=== PATIENT | male | born 1965 | race Caucasian/White ===

== ENCOUNTER 2021-03-25 09:13 | Observation (INO) ==
[2021-03-25] MEDS: Ipratropium/Albuterol Neb 3 ML IH PRN ×2 (15:23→22:21)
[2021-03-25 15:42] LABS: Prothrombin Time 11.3 Seconds (9.4-12.1)
[2021-03-25 15:47] LABS: Hematocrit 42.5 % (37.5-50.1); Hemoglobin 13.8 g/dL (12.9-16.9); Mean Corpuscular HGB Conc 32.5 g/dL (31.6-35.5); Mean Corpuscular Hemoglobin 29.9 pg (28.0-33.3); Mean Corpuscular Volume 92.2 fL (83.0-100.0); Mean Platelet Volume 9.5 fL (9.4-12.4); Platelet Count 289 K/mcL (140-400); Red Blood Count 4.61 M/mcL (4.19-5.50); Red Cell Distribution Width 13.2 % (11.5-14.5)
[2021-03-25 16:17] LABS: Alanine Aminotransferase 10 Units/L (7-52); Albumin 4.2 g/dL (3.5-5.7); Albumin/Globulin Ratio 1.8 (1.1-2.2); Alkaline Phosphatase 28 Units/L (34-104); Aspartate Amino Transferase 12 Units/L (13-39); BUN/Creatinine Ratio 13 (6-26); Bilirubin,Total 0.5 mg/dL (0.3-1.0); Blood Urea Nitrogen 12 mg/dL (6-20); Calcium 9.1 mg/dL (8.6-10.3); Carbon Dioxide 27 mEq/L (23-29); Chloride 102 mEq/L (98-107); Globulin 2.3 g/dL (2.4-3.5); Glucose 99 mg/dL (70-105); Magnesium 2.2 mg/dL (1.6-2.6); Osmolality,Calculated 294 (280-300); Potassium 3.7 mEq/L (3.5-5.1); Sodium 142 mEq/L (136-145); Total Protein 6.5 g/dL (6.4-8.9); eGFR For African Americans > 60 (> 60); eGFR For Non-African Americans > 60 (> 60)
[2021-03-25 19:21] LABS: VBG HCO3 33 mEq/L (21-27); VBG PCO2 64 mmHg (41-51); VBG PH 7.32 pH Units (7.32-7.42); VBG PO2 25 mmHg (25-50)
[2021-03-25] MEDS: Gabapentin 300 MG CAPSULE PO SCH (21:47)
[2021-03-25] MEDS: Baclofen 10 MG TABLET PO SCH (21:47)
[2021-03-26] MEDS: Ipratropium/Albuterol Neb 3 ML IH PRN (06:10)
[2021-03-26] MEDS: Baclofen 10 MG TABLET PO SCH ×2 (07:59→22:26)
[2021-03-26] MEDS: Gabapentin 300 MG CAPSULE PO SCH ×2 (07:59→22:26)
[2021-03-26] MEDS ORDERED: Ipratropium/Albuterol Neb 3 ML IH PRN (08:13)
[2021-03-26] MEDS ORDERED: predniSONE 10 MG TABLET PO SCH (09:00)
[2021-03-26] MEDS ORDERED: Budesonide/Formoterol 160/4.5 1 PUFF INH IH SCH (10:00)
[2021-03-26] MEDS ORDERED: Ipratropium/Albuterol Neb 3 ML IH SCH ×2 (10:00→22:00)
[2021-03-26] MEDS ORDERED: Bacitracin 50,000 UNIT, Polymyxin B Sulfate 500,000 UNIT, Sodium Chloride IRRigation 1,... IR ONE (10:15)
[2021-03-26] MEDS ORDERED: *HR* OxyCODONE Immed Rel 5 MG TABLET PO PRN ×2 (10:28→14:12)
[2021-03-26] MEDS ORDERED: Ondansetron 4 MG/2 ML VIAL IVP PRN ×2 (10:28→14:12)
[2021-03-26] MEDS ORDERED: *HR* HYDROmorphone PF 0.5 MG/0.5 ML SYRINGE IVP PRN (10:28)
[2021-03-26] MEDS ORDERED: Ringers Solution, Lactated 1,000 ML IVC SCH ×2 (10:30→14:12)
[2021-03-26] MEDS ORDERED: Acetaminophen IV 1,000 MG/100 ML BAG IVPB ONE (10:37)
[2021-03-26] MEDS ORDERED: *HR* FentaNYL (PF) 100 MCG/2 ML VIAL ONE (10:41)
[2021-03-26] MEDS ORDERED: *HR* Propofol 200 MG/20 ML VIAL IVP ONE (10:42)
[2021-03-26] MEDS ORDERED: *HR* Midazolam HCl 2 MG/2 ML VIAL ONE (10:42)
[2021-03-26] MEDS ORDERED: Lidocaine -MPF 4% 5 ML AMPUL ONE (10:48)
[2021-03-26] MEDS ORDERED: *HR* Succinylcholine 200 MG/10 ML VIAL IVP ONE (10:49)
[2021-03-26] MEDS ORDERED: Lidocaine -MPF 2% 2 ML VIAL ONE (10:49)
[2021-03-26] MEDS ORDERED: EPHEDrine 50 MG/ML VIAL ONE (11:01)
[2021-03-26] MEDS ORDERED: Ondansetron 4 MG/2 ML VIAL ONE (11:04)
[2021-03-26] MEDS ORDERED: *HR* HYDROMORPHONE 2 MG/ML VIAL ONE (11:34)
[2021-03-26] MEDS ORDERED: Ketorolac 30 MG/ML VIAL ONE (12:55)
[2021-03-26] MEDS ORDERED: *HR* HYDROcodone/Acet 5/325 mg TABLET PO PRN (14:12)
[2021-03-26] MEDS ORDERED: Acetaminophen 325 MG TABLET PO PRN (14:12)
[2021-03-26] MEDS ORDERED: Naloxone 0.4 MG/ML INJ IVP PRN (14:12)
[2021-03-26] MEDS ORDERED: Ipratropium/Albuterol Neb 3 ML ONE (15:30)
[2021-03-26] MEDS: Ipratropium/Albuterol Neb 3 ML IH SCH ×2 (15:31→22:58)
[2021-03-26] MEDS: CeFAZolin 2 GM/120 ML BAG IVPB SCH ×2 (17:09→23:55)
[2021-03-26] MEDS ORDERED: (Glycopyrrolate/Formoterol Fum [Bevespi Aerosphere In PO SCH (22:00)
[2021-03-26] MEDS ORDERED: NON-FORMULARY MEDICATION 1 EACH EACH (Acetaminophen [Tylenol Arthritis] 650 MG Tablet.Er) PO SCH (22:00)
[2021-03-27 01:18] LABS: Hematocrit 38.1 % (37.5-50.1); Mean Corpuscular HGB Conc 34.1 g/dL (31.6-35.5); Mean Corpuscular Hemoglobin 30.8 pg (28.0-33.3); Mean Corpuscular Volume 90.3 fL (83.0-100.0); Mean Platelet Volume 9.2 fL (9.4-12.4); Platelet Count 254 K/mcL (140-400); Red Blood Count 4.22 M/mcL (4.19-5.50); Red Cell Distribution Width 13.1 % (11.5-14.5); White Blood Count 10.4 K/mcL (4.3-11.1)
[2021-03-27 01:36] LABS: BUN/Creatinine Ratio 10 (6-26); Blood Urea Nitrogen 9 mg/dL (6-20); Carbon Dioxide 27 mEq/L (23-29); Chloride 104 mEq/L (98-107); Glucose 167 mg/dL (70-105); Osmolality,Calculated 292 (280-300); Phosphorous 3.9 mg/dL (2.7-4.5); Potassium 4.2 mEq/L (3.5-5.1); Sodium 140 mEq/L (136-145); eGFR For African Americans > 60 (> 60); eGFR For Non-African Americans > 60 (> 60)
[2021-03-27] MEDS: Ipratropium/Albuterol Neb 3 ML IH SCH ×3 (03:51→15:50)
[2021-03-27] MEDS: Gabapentin 300 MG CAPSULE PO SCH (09:49)
[2021-03-27] MEDS: Baclofen 10 MG TABLET PO SCH (09:50)
[2021-03-27 14:59] VITALS: BP 103/63
== END 2021-03-27 17:40 | disposition home or self-care (01) ==
LOC: 3NENU
PROVIDERS: ADMIT Orthopaedic Surgery Orthopaedic Surgery of the Spine; ATTEND Orthopaedic Surgery Orthopaedic Surgery of the Spine

== ENCOUNTER 2022-04-28 06:21 | Inpatient (IN) ==
[2022-04-28] MEDS ORDERED: CeFAZolin Syr 2,000MG/20 ML 2,000 MG/20 ML SYRINGE IVPB ONE (06:53)
[2022-04-28] MEDS ORDERED: Ondansetron 4 MG/2 ML VIAL ONE (06:57)
[2022-04-28] MEDS ORDERED: *HR* Rocuronium Bromide 50 MG/5 ML VIAL ONE (06:57)
[2022-04-28] MEDS ORDERED: *HR* FentaNYL (PF) 100 MCG/2 ML VIAL ONE (06:57)
[2022-04-28] MEDS ORDERED: *HR* Propofol 200 MG/20 ML VIAL IVP ONE (06:57)
[2022-04-28] MEDS ORDERED: *HR* Succinylcholine 200 MG/10 ML VIAL IVP ONE (06:57)
[2022-04-28] MEDS ORDERED: *HR* Midazolam HCl 2 MG/2 ML VIAL ONE (06:57)
[2022-04-28] MEDS ORDERED: *HR* Remifentanil 2 MG VIAL IVP ONE (06:58)
[2022-04-28] MEDS ORDERED: Famotidine 20 MG TABLET PO ONE (07:00)
[2022-04-28] MEDS ORDERED: *HR* OxyCODONE Immed Rel 5 MG TABLET PO ONE (07:00)
[2022-04-28] MEDS ORDERED: Ringers Solution, Lactated 1,000 ML IVC SCH (07:00)
[2022-04-28] MEDS ORDERED: Pregabalin 75 MG CAPSULE PO ONE (07:00)
[2022-04-28] MEDS ORDERED: Lidocaine -MPF 2% 5 ML VIAL ONE ×2 (07:05→11:54)
[2022-04-28] MEDS ORDERED: Vancomycin 1,000 MG VIAL ONE (07:13)
[2022-04-28] MEDS ORDERED: Bacitracin OINT PKT TP ONE (07:13)
[2022-04-28] MEDS ORDERED: EPHEDrine 50 MG/ML VIAL ONE (07:15)
[2022-04-28] MEDS ORDERED: *HR* HYDROmorphone PF 0.5 MG/0.5 ML SYRINGE IVP PRN (07:17)
[2022-04-28] MEDS ORDERED: Ondansetron 4 MG/2 ML VIAL IVP PRN ×2 (07:17→15:29)
[2022-04-28] MEDS: tiZANidine 4 MG TABLET PO SCH ×2 (07:21→14:13)
[2022-04-28] MEDS ORDERED: *HR* Magnesium Sulfate 1 GM/2 ML VIAL ONE (09:12)
[2022-04-28] MEDS ORDERED: *HR* Remifentanil 1 MG VIAL IVP ONE (11:17)
[2022-04-28] MEDS ORDERED: *HR* HYDROMORPHONE 2 MG/ML VIAL ONE (12:11)
[2022-04-28] MEDS ORDERED: Acetaminophen IV 1,000 MG/100 ML BAG IVPB PRN (14:08)
[2022-04-28] MEDS ORDERED: *HR* OxyCODONE Immed Rel 5 MG TABLET PO PRN (14:11)
[2022-04-28] MEDS: *HR* HYDROmorphone PF 0.5 MG/0.5 ML SYRINGE IVP PRN ×3 (14:17→14:36)
[2022-04-28] MEDS ORDERED: Naloxone 0.4 MG/ML INJ IVP PRN (15:29)
[2022-04-28] MEDS ORDERED: Baclofen 10 MG TABLET PO PRN (15:29)
[2022-04-28] MEDS ORDERED: NON-FORMULARY MEDICATION 1 EACH EACH (Ipratropium/Albuterol Sulfate 120 PUFF Inhaler) IH PRN (15:29)
[2022-04-28] MEDS ORDERED: tiZANidine 4 MG TABLET PO PRN (15:39)
[2022-04-28] MEDS: CeFAZolin 2 GM/120 ML BAG IVPB SCH ×2 (16:16→23:15)
[2022-04-28] MEDS: Ringers Solution, Lactated 1,000 ML IVC SCH (16:20)
[2022-04-28] MEDS ORDERED: 0.9 % Sodium Chloride 500 ML IVC ONE (18:17)
[2022-04-28] MEDS: Ipratropium/Albuterol Neb 3 ML IH SCH (20:57)
[2022-04-29] MEDS: Acetaminophen 325 MG TABLET PO PRN (00:57)
[2022-04-29] MEDS: Ringers Solution, Lactated 1,000 ML IVC SCH (00:57)
[2022-04-29] MEDS: *HR* HYDROcodone/Acet 5/325 mg TABLET PO PRN (03:59)
[2022-04-29] MEDS: predniSONE 20 MG TABLET PO SCH (08:07)
[2022-04-29] MEDS: Ipratropium/Albuterol Neb 3 ML IH SCH ×2 (09:57→21:33)
[2022-04-29] MEDS: *HR* OxyCODONE Immed Rel 5 MG TABLET PO PRN ×2 (15:17→22:18)
[2022-04-30] MEDS: *HR* OxyCODONE Immed Rel 5 MG TABLET PO PRN ×2 (03:42→20:52)
[2022-04-30] MEDS: *HR* HYDROcodone/Acet 5/325 mg TABLET PO PRN (06:51)
[2022-04-30] MEDS: Ipratropium/Albuterol Neb 3 ML IH SCH ×2 (07:29→20:18)
[2022-04-30] MEDS: predniSONE 20 MG TABLET PO SCH (09:56)
[2022-04-30] MEDS: Acetaminophen 325 MG TABLET PO PRN (11:53)
[2022-05-01] MEDS: *HR* OxyCODONE Immed Rel 5 MG TABLET PO PRN ×2 (01:54→10:11)
[2022-05-01] MEDS: *HR* HYDROcodone/Acet 5/325 mg TABLET PO PRN (03:39)
[2022-05-01] MEDS: Ipratropium/Albuterol Neb 3 ML IH SCH (09:38)
[2022-05-01] MEDS: predniSONE 20 MG TABLET PO SCH (10:10)
[2022-05-01] MEDS: Acetaminophen 325 MG TABLET PO PRN (15:02)
[2022-05-01 16:54] VITALS: BP 111/72; PULSE 85; TEMP 98.5; O2SAT 94
== END 2022-05-01 18:40 | disposition home health service (06) | DRG 321 ==
LOC: SDCAOSI 06:21 → 4WAOSI 15:23
PROVIDERS: ADMIT Orthopaedic Surgery Orthopaedic Surgery of the Spine; ATTEND Orthopaedic Surgery Orthopaedic Surgery of the Spine